=== PATIENT | male | born 1995 | race Hispanic/Latino ===

== ENCOUNTER 2020-05-18 15:05 | Emergency (ER) | payer OTHER ==
[2020-05-18] MEDS ORDERED: ACETAMINOPHEN 325 MG TAB ONE (15:24)
[2020-05-18] MEDS ORDERED: TETANUS/DIPHTHERIA TOXOID [ADULT] 0.5 ML VIAL IM ONE (16:11)
[2020-05-18] MEDS ORDERED: LIDOCAINE HCL 1% 20 ML VIAL ONE (16:21)
== END 2020-05-18 16:55 | disposition home or self-care (01) ==
LOC: EDH 15:05
DX: S61.216A Laceration without foreign body of right little finger without damage to nail, initial encounter (principal); X58.XXXA Exposure to other specified factors, initial encounter; Y93.89 Activity, other specified; Y92.89 Other specified places as the place of occurrence of the external cause; Y99.8 Other external cause status
CPT/HCPCS: 12001; 73140; 90471; 90714